=== PATIENT | male | born 1980 | race Asian ===

== ENCOUNTER 2019-07-25 07:32 | Day surgery (SDC) | payer OTHER ==
[2019-07-25] MEDS ORDERED: MIDAZOLAM 2 MG/2 ML VIAL IVP ONE (07:33)
[2019-07-25] MEDS ORDERED: DEXAMETHASONE 4 MG/ML VIAL IVP ONE (07:33)
[2019-07-25] MEDS ORDERED: LIDOCAINE-MPF 2% 5 ML VIAL IM ONE (07:33)
[2019-07-25] MEDS ORDERED: KETOROLAC 30 MG/ML VIAL IVP ONE (07:33)
[2019-07-25] MEDS ORDERED: CEFAZOLIN SODIUM IN 0.9 % NACL 2 GM/100 ML BAG IV ONE (07:36)
--- NOTE | 2019-07-25 08:36 | ANESTHESIA ---
Pre-Anesthesia VS, & Labs - Diagnosis L knee meniscal tear - Procedure L knee scope w meniscal debridement Vital Signs: Temp Pulse Resp BP Pulse Ox 36.3 C L 70 16 128/84 H 99 07/25/19 08:02 07/25/19 08:02 07/25/19 08:02 07/25/19 08:02 07/25/19 08:02 Height 5 ft 10 in Weight (kg) 89.9 kg - NPO Last Fluid Intake: 6 hours Home Medications and Allergies Home Medications: Ambulatory Orders No Known Home Medications 07/25/19 No Known Home Medications 07/25/19 Allergies/Adverse Reactions: Allergies Allergy/AdvReac Type Severity Reaction Status Date / Time No Known Drug Allergies Allergy Verified 07/25/19 08:14 Anes History & Medical History - Anesthetic History Anesthesia Complications: reports: No previous complications Family history of Anesthesia Complications: Denies Family history of Malignant Hyperthermia: Denies - Medical History Cardiovascular: reports: None Pulmonary: reports: None Gastrointestinal: reports: None Urinary: reports: None Musculoskeletal: reports: Chronic back pain Endocrine/Autoimmune: reports: None Skin: reports: Eczema Psychosocial: reports: Cannabis (recently stopped) Exam General: Alert, Oriented x3, Cooperative Dental: WNL Mouth Opening: Greater than 4 Fingerbreadths Neck Mobility: Normal Mallampati classification: I Thyromental Distance: greater than 6 cm Respiratory: Lungs clear, Normal breath sounds Cardiovascular: Regular rate Neurological: Normal speech Mental/Cognitive Status: Alert/Oriented X3, Normal for patient Cognitive Status: Within normal limits Plan Anesthesia Type: General Consent for Procedure(s) Verified and Reviewed: Yes Code Status: Attempt Resuscitation ASA classification: 2-Mild systemic disease Is this case an emergency?: No
[2019-07-25] MEDS ORDERED: LACTATED RINGERS 1,000 ML IV ONE ×2 (09:00→11:04)
[2019-07-25] MEDS ORDERED: EPINEPHrine 1 MG/ML AMP ONE (10:27)
[2019-07-25] MEDS ORDERED: BUPIVACAINE 0.25% PF 30 ML VIAL ONE (10:28)
[2019-07-25] MEDS ORDERED: BUPIVACAINE 0.25% PF 30 ML VIAL SUBQ ONE (11:02)
[2019-07-25] MEDS ORDERED: EPINEPHrine 1 MG/ML AMP IR ONE (11:03)
[2019-07-25] MEDS ORDERED: ONDANSETRON 4 MG/2 ML VIAL IVP PRN (12:44)
[2019-07-25] MEDS ORDERED: oxyCODONE 5 MG TABLET PO PRN (12:44)
[2019-07-25] MEDS: fentaNYL 100 MCG/2 ML VIAL ONE ×2 (12:46→12:50)
--- NOTE | 2019-07-25 12:50 | OPERATIVE REPORT ---
Operative Report - Other Other Information/Narrative: Date of Surgery: 25 July 2019 Pre-Op Diagnosis: Left knee lateral meniscus tear Procedure: Left knee lateral meniscus debridement. Left knee medial femoral condyle chondroplasty. Medial plica excision Postop Diagnosis: Left knee lateral meniscus tear. Left knee medial femoral condyle chondral lesion. Medial plica syndrome Primary Surgeon: Abner Enriquez Secondary Surgeon: None Complications: None Tourniquet Time: 71 minutes EBL: 5 cc Indication For Surgery: 39-year-old male whom has lateral knee pain starting in March after he ran for 2 days in a row. The pain did not respond to conservative measures and an MRI showed a significant degenerative horizontal lateral meniscus tear. The risks, benefits, and alternatives were discussed. Risks include pain, bleeding, infection, damage to nearby structures and cartilage, lack of symptom relief, need for further surgery, DVT, PE, stroke, and . Written consent was obtained. Examination Under Anesthesia: ROM equal to the contralateral side. Stable dial at 30 & 90 degrees. Stable to varus and valgus stressing at 0 & 30 degrees. Normal Annika. Negative Pivot shift. No mechanical sensation Arthroscopic Findings: Loose bodies -none Synovium -injected and exuberant, fat pad was debrided. Large medial plica that required excision Patella cartilage -normal Trochlear cartilage -normal Medial femoral condyle cartilage -7 mm x 10 mm full-thickness cartilage lesion that is central in the medial femoral condyle. There is an area of grade 2 changes adjacent to that as well Medial tibial plateau cartilage -normal Medial meniscus -normal Anterior cruciate ligament -normal Posterior cruciate ligament -normal Lateral femoral condyle cartilage -grade 1 changes in multiple areas Lateral tibial plateau cartilage -grade 1/2 changes in multiple areas Lateral meniscus -large horizontal tear in the posterior horn body and anterior horn. The free edge of both leaflets was debrided back a few millimeters and the inferior leaflet was debrided back until a stable base. Procedure in Detail: The patient was met in the pre-operative hold area on the day of the procedure. The operative extremity was signed and questions were answered. The patient was brought to the operating room and a general anesthetic was administered. Supine position was used and bony prominences were padded. An examination under anesthesia was performed. Standard prepping and draping was performed. A time out confirmed patient identification, laterality, procedure, allergies, antibiotics, and images. An Esmarch was used to exsanguinate the limb and the tourniquet was elevated to 250 mmHg. A standard diagnostic arthroscopy of the knee was performed through anterolateral and anteromedial portal sites. The anteromedial portal was created under direct visualization after localizing with a spinal needle. The findings can be found above. The exuberant fat pad and medial plica was excised with a shaver. Medial plica was then excised with a shaver as well I then proceeded to use various biters and dodie to debride the lateral meniscus as indicated above. I took it back to a stable base and was pleased with the progress. There were no loose tissue. I then debrided the medial femoral condyle cartilage back to a stable base as well and then measured it and took final images. Final images were taken and all arthroscopic fluid and instruments were removed from the knee. The incisions were closed with buried monocryl sutures. Steri strips were applied. 20 cc of 0.25% Marcaine without epinephrine was injected near the portal sites. A sterile dressing and compression stocking was placed. The patient was awakened and transferred to recovery in stable condition.
[2019-07-25] MEDS ORDERED: ACETAMINOPHEN 1,000 MG/100 ML 100 ML IV ONE (12:53)
[2019-07-25] MEDS ORDERED: oxyCODONE 5 MG TABLET ONE (13:18)
[2019-07-25 14:02] VITALS: BP 120/71
== END 2019-07-25 07:33 | disposition home or self-care (01) ==
LOC: SDS 07:32
PROVIDERS: ATTEND Orthopaedic Surgery
DX: S83.282A Other tear of lateral meniscus, current injury, left knee, initial encounter (principal); M89.9 Disorder of bone, unspecified; M67.52 Plica syndrome, left knee